=== PATIENT | female | born 1955 | race Caucasian/White ===

== ENCOUNTER 2017-01-10 17:23 | Emergency (ER) | payer BC ==
[~2017-01-10] VITALS: Ht 166.4 cm; Wt 107.7 kg
[~2017-01-10 17:23] MED LIST: ASPIR 8181 M1 PO; Coumadin,Jantoven PO; FENOFIBRATE160 MG PO; GLIPIZIDE10 M1 PO; HYDROCHLOROTHIA25 MG PO; HYDROCODON-ACE1 EAC7 PO; LEVOTHROID125 MCG PO; LIPITOR10 MG PO; METFORMIN HCL500 MG PO; TRICOR145 MG PO; VICTOZA 2-0.6 MG/0.1 SC; VICTOZA0.6 MG/0.2 SC; [UNRECOGNIZED DRUG - OTHER] MC
[2017-01-10] MEDS ORDERED: XARELTO15 MG PO (20:05)
[2017-01-10 21:26] VITALS: BP 141/89
== END 2017-01-10 21:27 | disposition home or self-care (01) ==
LOC: EME 17:23
DX: I82.812 Embolism and thrombosis of superficial veins of left lower extremity (principal); Z86.711 Personal history of pulmonary embolism; Z86.718 Personal history of other venous thrombosis and embolism; Z79.82 Long term (current) use of aspirin; E11.9 Type 2 diabetes mellitus without complications; E78.5 Hyperlipidemia, unspecified; E03.9 Hypothyroidism, unspecified; F17.200 Nicotine dependence, unspecified, uncomplicated
CPT/HCPCS: 93971; 99281; 99284